=== PATIENT | female | born 1965 | race Caucasian/White ===

== ENCOUNTER 2017-02-02 14:50 | Emergency (ER) | payer OTHER ==
[~2017-02-02] VITALS: Ht 175.3 cm; Wt 63.5 kg
== END 2017-02-02 20:21 | disposition home or self-care (01) ==
LOC: ER 14:50
DX: K52.9 Noninfective gastroenteritis and colitis, unspecified (principal)

== ENCOUNTER → 2017-04-24 | Emergency (ER) | payer OTHER ==
[~2017-04-24] VITALS: Ht 175.3 cm; Wt 63.5 kg
== END | disposition home or self-care (01) ==
LOC: ER 08:45
DX: N73.8 Other specified female pelvic inflammatory diseases (principal); R10.2 Pelvic and perineal pain